=== PATIENT | female | born 1945 | race Caucasian/White ===

== ENCOUNTER 2016-10-31 09:36 | Inpatient (IN) | payer MEDICARE ==
[2016-10-10 11:24] VITALS: Ht 162.6 cm; Wt 85.6 kg
[2016-10-10 11:29] VITALS: BP_SYST 160; RESP 20; TEMP 98.1
[~2016-10-31] VITALS: Ht 162.6 cm; Wt 85.6 kg
[2016-10-31] VITALS (21 sets, daily range): BP systolic 110–157; RESP 16–20; TEMP 97.5–98.9
[~2016-10-31 09:36] MED LIST: DEXAMETHASONE 4 MG/ML VIAL IV ONE; FENTANYL 100 MCG/2 ML AMP IV ONE; GLYCOPYRROLATE 0.2 MG/ML VIAL IV ONE; NEOSTIGMINE 10 MG/10 ML VIAL IV ONE; ONDANSETRON 4 MG VIAL IV PUSH ONE; PROPOFOL 20 ML PER ML IV ONE; ROCURONIUM 50 MG VIAL IV ONE
[2016-10-31] MEDS ORDERED: ROPIVACAINE 5 MG/ML 30 ML EPIDURAL ONE (09:41)
[2016-10-31] MEDS ORDERED: CEFAZOLIN 2,000 MG in SODIUM CHLORIDE 0.9% 100 ML IV ONE (09:55)
[2016-10-31] MEDS ORDERED: ROPIVACAINE 0.5% 139 MG, EPINEPHrine 1:1,000 0.2 MG, KETOROLAC INJ 30 MG, MORPHINE 10 MG SUBQ ONE ×4 (09:55)
[2016-10-31] MEDS ORDERED: TRANEXAMIC ACID IV ONE ×4 (10:25)
[2016-10-31] MEDS ORDERED: SODIUM CHLORIDE 0.9% IV ONE ×4 (10:25)
[2016-10-31] MEDS ORDERED: LIDOCAINE 1% BUFFERED 1 ML SYR INTRADERM PRN (10:35)
[2016-10-31] MEDS ORDERED: LACT RINGERS 1,000 ML IV SCH (10:35)
[2016-10-31] MEDS ORDERED: MIDAZOLAM 2 MG/2 ML INJ IV ONE (10:35)
[2016-10-31] MEDS ORDERED: SCOPOLAMINE PATCH TRANSDERM ONE (10:35)
[2016-10-31] MEDS ORDERED: GLYCOPYRROLATE 0.2 MG/ML VIAL IV ONE (10:35)
[2016-10-31] MEDS ORDERED: MORPHINE 2 MG/ML SYR IV PRN ×2 (11:55→13:20)
[2016-10-31] MEDS ORDERED: DILAUDID 1 MG/ML AMP IV PRN (11:55)
[2016-10-31] MEDS ORDERED: ONDANSETRON 4 MG VIAL IV PRN ×2 (11:55→13:20)
[2016-10-31] MEDS ORDERED: MORPHINE 4 MG/ML SYR IV PRN ×2 (11:55→13:20)
[2016-10-31] MEDS ORDERED: OXYCODONE 5 MG TAB PO PRN (11:55)
[2016-10-31] MEDS ORDERED: MEPERIDINE 25 MG/ML IV PRN (11:55)
[2016-10-31] MEDS ORDERED: D5-1/2-NS W/KCL 20MEQ/L 1,000 ML IV SCH (13:20)
[2016-10-31] MEDS ORDERED: ONDANSETRON 4 MG TAB PO PRN (13:20)
[2016-10-31] MEDS ORDERED: ZOLPIDEM 5 MG TAB PO PRN (13:20)
[2016-10-31] MEDS ORDERED: SALINE FLUSH 10 ML FLUSH PRN (13:20)
[2016-10-31] MEDS ORDERED: MAG HYDROX 30 ML UDC PO PRN (13:20)
[2016-10-31] MEDS ORDERED: BACITRACIN 50,000 UNITS INJ IRRIG ONE (13:44)
[2016-10-31] MEDS: DOCUSATE SOD 100 MG CAP PO SCH ×2 (14:05→20:46)
[2016-10-31] MEDS: CEFAZOLIN 2,000 MG in SODIUM CHLORIDE 0.9% 100 ML IV SCH ×2 (17:01→22:18)
[2016-10-31] MEDS: SALINE FLUSH 10 ML FLUSH SCH (20:00)
[2016-10-31] MEDS: SERTRALINE 100 MG TAB PO SCH (20:46)
[2016-10-31] MEDS: KETOROLAC 30 MG/ML VIAL IV PRN (20:48)
[2016-11-01 02:53] VITALS: BP_SYST 122; RESP 16; TEMP 98.5
[2016-11-01] MEDS: KETOROLAC 30 MG/ML VIAL IV PRN ×3 (03:12→20:47)
[2016-11-01] MEDS: CEFAZOLIN 2,000 MG in SODIUM CHLORIDE 0.9% 100 ML IV SCH ×2 (04:08→11:15)
[2016-11-01] MEDS: SODIUM CHLORIDE 0.9% FLUSH BAG 500 ML IV SCH (05:38)
[2016-11-01] MEDS: FONDAPARINUX 2.5 MG SYR SUBQ SCH (05:38)
[2016-11-01 07:31] VITALS: BP_SYST 121; RESP 18; TEMP 98.7
[2016-11-01] MEDS: POLYETHYLENE GLYCOL 17 GM PACKET PO SCH (08:59)
[2016-11-01] MEDS: MAG HYDROX 30 ML UDC PO SCH (08:59)
[2016-11-01] MEDS: SENNA 8.6 MG TAB PO SCH ×2 (08:59→20:46)
[2016-11-01] MEDS: DOCUSATE SOD 100 MG CAP PO SCH ×2 (08:59→20:46)
[2016-11-01] MEDS: SALINE FLUSH 10 ML FLUSH SCH ×2 (08:59→20:46)
[2016-11-01 11:30] VITALS: BP_SYST 136; RESP 20; TEMP 98.3
[2016-11-01 19:26] VITALS: BP_SYST 155; RESP 16; TEMP 99
[2016-11-01] MEDS: SERTRALINE 100 MG TAB PO SCH (20:46)
[2016-11-01 22:26] VITALS: BP_SYST 151; RESP 16; TEMP 99.6
[2016-11-01] MEDS ORDERED: BISACODYL 10 MG SUPP RECTAL PRN (23:40)
[2016-11-01] MEDS ORDERED: FLEET ENEMA 132 ML BTL RECTAL PRN (23:40)
[2016-11-02] MEDS: KETOROLAC 30 MG/ML VIAL IV PRN (03:31)
[2016-11-02 03:38] VITALS: BP_SYST 148; RESP 18; TEMP 98.7
[2016-11-02] MEDS: FONDAPARINUX 2.5 MG SYR SUBQ SCH (05:43)
[2016-11-02] MEDS: SODIUM CHLORIDE 0.9% FLUSH BAG 500 ML IV SCH (05:43)
[2016-11-02 07:35] VITALS: BP_SYST 146; RESP 16; TEMP 98.4
[2016-11-02] MEDS: SALINE FLUSH 10 ML FLUSH SCH (08:23)
[2016-11-02] MEDS: MAG HYDROX 30 ML UDC PO SCH (08:24)
[2016-11-02] MEDS: DOCUSATE SOD 100 MG CAP PO SCH (08:24)
[2016-11-02] MEDS: POLYETHYLENE GLYCOL 17 GM PACKET PO SCH (08:24)
[2016-11-02] MEDS: SENNA 8.6 MG TAB PO SCH (08:24)
[2016-11-02] MEDS ORDERED: TRAMADOL 50 MG TAB PO PRN (09:05)
[2016-11-02 11:43] VITALS: BP_SYST 147; RESP 16; TEMP 98.2
[2016-11-02 12:14] VITALS: BP_SYST 147; RESP 16; TEMP 98.2
[2016-11-03] MEDS ORDERED: REMOVE SCOPALAMINE PATCH XX ONE (10:35)
== END 2016-11-02 15:45 | disposition home health service (06) | DRG 470 ==
LOC: ENRESERVDT → ENRESERVTM → SDS 09:36 → 2NO 13:54
PROVIDERS: ADMIT Family Medicine; ATTEND Family Medicine
PROC: 3E0T3CZ (ICD-10-PCS; 2016-10-31)
PROC: 0SRD0J9 Replacement of Left Knee Joint with Synthetic Substitute, Cemented, Open Approach (ICD-10-PCS; principal; 2016-10-31 11:09)
DX: M17.12 Unilateral primary osteoarthritis, left knee (principal); D64.9 Anemia, unspecified; I10 Essential (primary) hypertension; E78.5 Hyperlipidemia, unspecified; Z85.3 Personal history of malignant neoplasm of breast; Z85.89 Personal history of malignant neoplasm of other organs and systems; F41.9 Anxiety disorder, unspecified; Z79.890 Hormone replacement therapy; G47.33 Obstructive sleep apnea (adult) (pediatric)
CPT/HCPCS: 80048; 85014; 85018; 85025; 86850; 86900; 86901; 94762; 94799